=== PATIENT | male | born 1950 | race American Indian/Alaskan Native ===

== ENCOUNTER 2019-10-17 18:20 | Emergency (ER) | payer MEDICARE ==
[2019-10-17 21:13] VITALS: BP 120/88
[2019-10-17] MEDS ORDERED: COLCHICINE 0.6 MG CAP PO ONE ×2 (21:18→22:18)
[2019-10-17] MEDS ORDERED: HYDROcodone/ACETAMINOPHEN 7.5-325MG TAB PO ONE (21:18)
--- NOTE | 2019-10-17 22:16 | Emergency Department Report ---
ED Extremity Problem HPI - General Chief complaint: Extremity Problem,Nontraumatic Stated complaint: RT FOOT BLACK AND BLUE Time Seen by Provider: 10/17/19 21:01 Source: patient Mode of arrival: Ambulatory Limitations: No Limitations - History of Present Illness Initial comments: Patient is a 69-year-old F [place] male who has a past medical history of hypertension CVA and gout who is complaining of some right foot pain. Patient states pain started approximately 3 days ago. He is having difficulty walking secondary to pain. Patient is never had pain in this area before but he has had bilateral gouty arthritis attacks in his knees. He denies fevers chills nausea vomiting diarrhea or trauma. Patient's pain is a 10 out of 10. Severity scale (0 -10): 8 - Related Data Previous Rx's Medication Instructions Recorded Last Taken Type HYDROcodone/APAP 5-325 [[place] 1 each PO Q6HR PRN #14 tablet 10/17/19 Unknown Rx 5/325] predniSONE [Deltasone] 20 mg PO QDAY #5 tab 10/17/19 Unknown Rx Allergies Allergy/AdvReac Type Severity Reaction Status Date / Time No Known Allergies Allergy Verified 10/17/19 18:28 ED Review of Systems ROS: Stated complaint: RT FOOT BLACK AND BLUE Other details as noted in HPI Comment: All other systems reviewed and negative ED Past Medical Hx - Past Medical History Previous Medical History?: Yes Hx Hypertension: Yes Hx CVA: Yes Additional medical history: GOUT - Surgical History Past Surgical History?: No - Social History Smoking Status: Current Every Day Smoker Substance Use Type: Alcohol - Medications Home Medications: Home Medications Medication Instructions Recorded Confirmed Last Taken Type HYDROcodone/APAP 5-325 [[place] 1 each PO Q6HR PRN #14 tablet 10/17/19 Unknown Rx 5/325] predniSONE [Deltasone] 20 mg PO QDAY #5 tab 10/17/19 Unknown Rx ED Physical Exam - General Limitations: No Limitations General appearance: alert, in no apparent distress - Head Head exam: Present: atraumatic, normocephalic - Eye Eye exam: Present: normal appearance - ENT ENT exam: Present: mucous membranes moist - Neck Neck exam: Present: normal inspection - Respiratory Respiratory exam: Present: normal lung sounds bilaterally. Absent: respiratory distress - Cardiovascular Cardiovascular Exam: Present: regular rate, normal rhythm. Absent: systolic murmur, diastolic murmur, rubs, gallop - GI/Abdominal GI/Abdominal exam: Present: soft, normal bowel sounds. Absent: distended, tenderness, guarding - Rectal Rectal exam: Present: deferred - Extremities Exam Extremities exam: Present: normal inspection, tenderness, joint swelling (right base of the great toe) - Back Exam Back exam: Present: normal inspection - Neurological Exam Neurological exam: Present: alert, oriented X3 - Psychiatric Psychiatric exam: Present: normal affect, normal mood - Skin Skin exam: Present: warm, dry, intact, normal color. Absent: rash ED Course Vital Signs 10/17/19 10/17/19 20:21 21:12 Temperature 98.2 F Pulse Rate 85 69 Respiratory 20 18 Rate Blood Pressure 110/82 Blood Pressure 120/88 [Left] O2 Sat by Pulse 97 99 Oximetry ED Medical Decision Making - Medical Decision Making Patient clinically has a gouty arthritis exacerbation. Patient started on colchicine and will be sent home with medications for pain control. Critical care attestation.: If time is entered above; I have spent that time in minutes in the direct care of this critically ill patient, excluding procedure time. ED Disposition Clinical Impression: Acute gout Qualifiers: Gout site: foot Gout etiology: idiopathic Laterality: right Qualified Code(s): M10.071 - Idiopathic gout, right ankle and foot Disposition: - TO HOME OR SELFCARE Is pt being admited?: No Does the pt Need Aspirin: No Condition: Stable Instructions: Acute Gouty Arthritis (ED) Referrals: PRIMARY CARE, [Primary Care Provider] - 3-5 Days Time of Disposition: 22:18
== END 2019-10-17 22:55 | disposition home or self-care (01) ==
LOC: ED 18:20
DX: M10.9 Gout, unspecified (principal); I10 Essential (primary) hypertension; F17.200 Nicotine dependence, unspecified, uncomplicated; Z86.73 Personal history of transient ischemic attack (TIA), and cerebral infarction without residual deficits; Z79.899 Other long term (current) drug therapy

== ENCOUNTER 2020-01-25 17:12 | Emergency (ER) | payer MEDICARE ==
--- NOTE | 2020-01-25 19:38 | Event Note ---
ED Screening Note Date of service: 01/25/20 Time: 18:29 ED Screening Note: This 69-year-old male with a history of CAD presents today complaining of pain and swelling to his right foot causing pain with walking. Patient also states that he has no history of hypertension his blood pressure has been very elevated. He denies chest pain, headache, blurry vision This initial assessment/diagnostic orders/clinical plan/treatment(s) is/are subject to change based on patients health status, clinical progression and re- assessment by fellow clinical providers in the ED. Further treatment and workup at subsequent clinical providers discretion. Patient/guardian urged not to elope from the ED as their condition may be serious if not clinically assessed and managed. Initial orders include: ekg,
[2020-01-25] MEDS ORDERED: amLODIPine 5 MG TAB PO ONE (21:33)
[2020-01-25] MEDS ORDERED: COLCHICINE 0.6 MG CAP PO ONE ×2 (21:33→22:33)
[2020-01-25] MEDS ORDERED: HYDROcodone/ACETAMINOPHEN 7.5-325MG TAB PO ONE (21:33)
[2020-01-25] MEDS ORDERED: predniSONE 20 MG TAB PO ONE (21:33)
--- NOTE | 2020-01-25 22:31 | Emergency Department Report ---
ED General Adult HPI - General Chief complaint: Extremity Injury, Lower Stated complaint: GOUT PAIN Time Seen by Provider: 01/25/20 21:23 Source: patient Mode of arrival: Ambulatory Limitations: No Limitations - History of Present Illness Initial comments: Patient is a 69-year-old F [place] male with a past medical history of gout and hypertension who is presenting with 3 days of pain to the bilateral feet, right greater than left. Patient states he has a great deal of swelling and has pain anytime the skin is even touched. He denies any fevers chills or direct trauma. Patient was noted to have an elevated blood pressure on arrival but he states that he was told by a physician that he needed to be on blood pressure medicines the rest of his life he did not believe it so he stopped taking the blood pressure medicine stopped seeing that physician. He denies any shortness of breath chest pain at this time. Severity scale (0 -10): 10 - Related Data Previous Rx's Medication Instructions Recorded Last Taken Type HYDROcodone/APAP 5-325 [[place] 1 each PO Q6HR PRN #14 tablet 10/17/19 Unknown Rx 5/325] predniSONE [Deltasone] 20 mg PO QDAY #5 tab 10/17/19 Unknown Rx Amlodipine Besylate [Norvasc] 5 mg PO DAILY #30 tablet 01/25/20 Unknown Rx Colchicine 0.6 mg PO DAILY #20 capsule 01/25/20 Unknown Rx HYDROcodone/APAP 5-325 [[place] 1 each PO Q6HR PRN #14 tablet 01/25/20 Unknown Rx 5/325] predniSONE [Deltasone] 20 mg PO QDAY #5 tab 01/25/20 Unknown Rx Allergies Allergy/AdvReac Type Severity Reaction Status Date / Time No Known Allergies Allergy Verified 10/17/19 18:28 ED Review of Systems ROS: Stated complaint: GOUT PAIN Other details as noted in HPI Comment: All other systems reviewed and negative ED Past Medical Hx - Past Medical History Hx Hypertension: Yes Hx CVA: Yes Additional medical history: GOUT - Social History Smoking Status: Current Every Day Smoker Substance Use Type: Alcohol, Marijuana - Medications Home Medications: Home Medications Medication Instructions Recorded Confirmed Last Taken Type HYDROcodone/APAP 5-325 [[place] 1 each PO Q6HR PRN #14 tablet 10/17/19 Unknown Rx 5/325] predniSONE [Deltasone] 20 mg PO QDAY #5 tab 10/17/19 Unknown Rx Amlodipine Besylate [Norvasc] 5 mg PO DAILY #30 tablet 01/25/20 Unknown Rx Colchicine 0.6 mg PO DAILY #20 capsule 01/25/20 Unknown Rx HYDROcodone/APAP 5-325 [[place] 1 each PO Q6HR PRN #14 tablet 01/25/20 Unknown Rx 5/325] predniSONE [Deltasone] 20 mg PO QDAY #5 tab 01/25/20 Unknown Rx ED Physical Exam - General Limitations: No Limitations General appearance: alert, in no apparent distress - Head Head exam: Present: atraumatic, normocephalic - Eye Eye exam: Present: normal appearance, PERRL, EOMI - ENT ENT exam: Present: mucous membranes moist - Neck Neck exam: Present: normal inspection - Respiratory Respiratory exam: Present: normal lung sounds bilaterally. Absent: respiratory distress, wheezes, rales, rhonchi - Cardiovascular Cardiovascular Exam: Present: regular rate, normal rhythm. Absent: systolic murmur, diastolic murmur, rubs, gallop - GI/Abdominal GI/Abdominal exam: Present: soft, normal bowel sounds - Rectal Rectal exam: Present: deferred - Extremities Exam Extremities exam: Present: normal inspection, pedal edema (Bilateral. The right foot is more swollen than the left. Right foot has some generalized erythema and very mild warmth. There is no evidence of any fluctuance.) - Back Exam Back exam: Present: normal inspection - Neurological Exam Neurological exam: Present: alert, oriented X3 - Psychiatric Psychiatric exam: Present: normal affect, normal mood - Skin Skin exam: Present: warm, dry, intact, normal color. Absent: rash ED Course Vital Signs 01/25/20 01/25/20 01/25/20 17:38 18:24 22:16 Temperature 98.8 F 98.8 F Pulse Rate 80 80 76 Respiratory 14 14 Rate Blood Pressure 177/119 182/110 Blood Pressure 177/119 [Right] O2 Sat by Pulse 99 99 Oximetry 01/25/20 22:19 Temperature Pulse Rate Respiratory 18 Rate Blood Pressure Blood Pressure [Right] O2 Sat by Pulse Oximetry ED Medical Decision Making - Medical Decision Making Patient symptoms consistent with acute gouty arthritis exacerbation. Patient started on colchicine and steroids. Patient given medications for pain relief. Patient also is to be started on Norvasc. Told the patient that he should have a second opinion with another primary care physician before stopping his medications. Critical care attestation.: If time is entered above; I have spent that time in minutes in the direct care of this critically ill patient, excluding procedure time. ED Disposition Clinical Impression: Acute gout, Hypertensive urgency Disposition: DC-01 TO HOME OR SELFCARE Is pt being admited?: No Does the pt Need Aspirin: No Condition: Stable Instructions: Hypertension (ED), Acute Gouty Arthritis (ED) Referrals: TRUNG JHAVERI MD [Staff Physician] - 3-5 Days Time of Disposition: 22:31
[2020-01-26 13:45] VITALS: BP 168/74
== END 2020-01-25 23:40 | disposition home or self-care (01) ==
LOC: ED 17:12
DX: M10.9 Gout, unspecified (principal); I16.0 Hypertensive urgency; F17.200 Nicotine dependence, unspecified, uncomplicated; F12.10 Cannabis abuse, uncomplicated; Z86.73 Personal history of transient ischemic attack (TIA), and cerebral infarction without residual deficits; Z79.899 Other long term (current) drug therapy
CPT/HCPCS: 99283; J7512